=== PATIENT | female | born 1990 | race Caucasian/White ===

== ENCOUNTER 2017-07-04 19:18 | Emergency (ER) | payer OTHER ==
[2017-07-04 19:52] VITALS: BP 121/67; PULSE 77; TEMP 99.3; BMI 31.9
--- NOTE | 2017-07-04 19:52 | PDOC ---
Rapid Medical Evaluation Time Seen by Provider: 07/04/17 19:41 Medical Evaluation: Allergies Allergy/AdvReac Type Severity Reaction Status Date / Time No Known Allergies Allergy Verified 04/30/15 10:12 07/04/17 19:49 Pt with c/o: rectal bleeding after defecation yesterday with wiping, feels hemorrhoid, hx of same, no meds taken, no bleeding now, no abd pain, slight rectal pain Pt on brief exam: vss Pt ordered for: none Pt to proceed to the ED Discharge Disposition - Diagnosis Bleeding hemorrhoid - Referrals - Patient Instructions - Post Discharge Activity
--- NOTE | 2017-07-04 20:52 | PDOC ---
History of Present Illness - General Chief Complaint: Rectal Bleed Stated Complaint: RECTAL BLEEDING Time Seen by Provider: 07/04/17 19:41 History Source: Patient Exam Limitations: No Limitations - History of Present Illness Initial Comments: 07/04/17 20:53 19-year-old female without significant past medical history presents to the emergency department with bright red blood noted on toilet paper after wiping last night. Patient states she has had hemorrhoids in the past and feels similar. Patient states she has not taken of water and has to strain to move her bowels. Patient is not had any episodes of blood in her stool and has not moved her bowels since the episode of bright red blood last evening. Past History - Past Medical History Allergies/Adverse Reactions: Allergies Allergy/AdvReac Type Severity Reaction Status Date / Time No Known Allergies Allergy Verified 07/04/17 19:50 Home Medications: Ambulatory Orders NK [No Known Home Medication] 07/04/17 - Immunization History Immunization Up to Date: No - Suicide/Smoking/Psychosocial Hx Smoking Status: No Smoking History: Never smoked Have you smoked in the past 12 months: No Number of Cigarettes Smoked Daily: 0 Hx Alcohol Use: No Drug/Substance Use Hx: No Substance Use Type: None Review of Systems - Review of Systems Able to Perform ROS?: Yes Is the patient limited Danish proficient: No Constitutional: No: Symptoms Reported HEENTM: No: Symptoms Reported Respiratory: No: Symptoms reported Cardiac (ROS): No: Symptoms Reported ABD/GI: Yes: See HPI : No: Symptoms Reported Musculoskeletal: No: Symptoms Reported Integumentary: No: Symptoms Reported Neurological: No: Symptoms reported Endocrine: No: Symptoms Reported Hematologic/Lymphatic: No: Symptoms Reported *Physical Exam - Vital Signs Last Vital Signs Temp Pulse Resp BP Pulse Ox 99.3 F 77 16 121/67 99 07/04/17 19:50 07/04/17 19:50 07/04/17 19:50 07/04/17 19:50 07/04/17 19:50 - Physical Exam General Appearance: Yes: Appropriately Dressed. No: Apparent Distress HEENT: positive: TALA, Normal ENT Inspection Neck: positive: Trachea midline, Supple Respiratory/Chest: positive: Lungs Clear, Normal Breath Sounds. negative: Respiratory Distress, Accessory Muscle Use Cardiovascular: positive: Regular Rhythm, Regular Rate Gastrointestinal/Abdominal: positive: Normal Bowel Sounds, Soft. negative: Tender Rectal Exam: positive: hemorrhoids (external nonthrombosed, nonbleeding) Musculoskeletal: positive: Normal Inspection. negative: CVA Tenderness Extremity: positive: Normal Capillary Refill, Normal Inspection, Normal Range of Motion Integumentary: positive: Normal Color, Dry, Warm Neurologic: positive: Fully Oriented, Alert, Normal Response Medical Decision Making - Medical Decision Making 07/04/17 20:51 A/P: 19-year-old female doesn't of the past medical history presents emergency Department with perirectal pain and bright red blood noted on toilet paper after wiping last night. Rectal exam reveals external hemorrhoid that is nonthrombosed and currently not bleeding. Discharge *DC/Admit/Observation/Transfer Diagnosis at time of Disposition: External hemorrhoid - Discharge Dispostion Disposition: HOME Condition at time of disposition: Stable Admit: No - Referrals - Patient Instructions Printed Discharge Instructions: DI for Hemorrhoids Additional Instructions: Apply Preparation H to affected area. Follow manufacturers instructions for appropriate dosing. Use Tucks witch toy pads to help relieve pain or experiencing on the rectum. Follow manufacturers instructions for appropriate dosage. Drink plenty of water. Return to emergency department for worsening bleeding, dizziness, lightheadedness, chest pain, shortness of breath or any other concerns. Take a very much for choosing us to provide your emergent healthcare needs. - Post Discharge Activity
== END 2017-07-04 20:57 | disposition home or self-care (01) ==
LOC: JERFT 19:18
DX: K64.4 Residual hemorrhoidal skin tags (principal)
CPT/HCPCS: 99281-25

== ENCOUNTER 2018-04-30 08:57 | Emergency (ER) | payer OTHER ==
[2018-04-30 09:08] VITALS: BP 122/74; PULSE 61; TEMP 98.2; BMI 29.6
--- NOTE | 2018-04-30 10:11 | PDOC ---
History of Present Illness - General Chief Complaint: Ear Problem Stated Complaint: Ear Problem Time Seen by Provider: 04/30/18 09:21 Past History - Past Medical History Allergies/Adverse Reactions: Allergies Allergy/AdvReac Type Severity Reaction Status Date / Time No Known Allergies Allergy Verified 07/04/17 19:50 Home Medications: Ambulatory Orders Cephalexin Monohydrate [Keflex -] 500 mg PO BID #14 capsule 04/30/18 Ofloxacin Otic [Floxin Otic -] 10 drop OT BID #100 drops 04/30/18 Sulfamethoxazole/Trimethoprim [Bactrim Ds -] 1 tab PO BID #14 tablet 04/30/18 COPD: No - Immunization History Immunization Up to Date: No - Suicide/Smoking/Psychosocial Hx Smoking Status: No Smoking History: Never smoked Have you smoked in the past 12 months: No Number of Cigarettes Smoked Daily: 0 Information on smoking cessation initiated: No Hx Alcohol Use: No Drug/Substance Use Hx: No Substance Use Type: None *Physical Exam - Vital Signs Last Vital Signs Temp Pulse Resp BP Pulse Ox 98.2 F 61 16 122/74 99 04/30/18 09:05 04/30/18 09:05 04/30/18 09:05 04/30/18 09:05 04/30/18 09:05 *DC/Admit/Observation/Transfer Diagnosis at time of Disposition: Ear ache Cellulitis Qualifiers: Site of cellulitis: trunk Site of cellulitis of trunk: groin Qualified Code(s) : L03.314 - Cellulitis of groin - Discharge Dispostion Disposition: HOME Condition at time of disposition: Stable Decision to Admit order: No - Referrals Referrals: Bubba Brower MD [Staff Physician] - - Patient Instructions Printed Discharge Instructions: DI for Ear Pain-Adult Additional Instructions: You have cellulitis. This is a skin infection. Please take the Bactrim and Keflex twice a day for one week. Please take all the antibiotics even if you feel better. You may use warm water soaks to the area. Please do this approximately 4-5 times a day. Please avoid shaving the skin around the area of redness. You may take Tylenol or Motrin as needed for pain. Please follow up with your primary care doctor in 1 week. Return to the emergency department if you have worsening redness, fevers, increasing pain, or have any changes in your symptoms. You were also evaluated for your ear ache Your head CT was normal today You most likely have an ear infection Please use the ear drops as directed Follow up with ENT. A referral for Dr. Brower has been provided Tienes celulitis Esta es kristy infeccin de la piel. Por favor, tome Bactrim y Keflex dos veces al da yahir kristy semana. Por favor , tome todos los antibiticos incluso si se siente mejor. Puede usar agua tibia en remojo a la artur. Por favor, haz esto aproximadamente 4 -5 veces al da. Evite rasurar la piel alrededor del vinnie de enrojecimiento. Puede june Tylenol o Motrin segn sea necesario para el dolor. Por favor yves un seguimiento con thomason mdico de atencin primaria en 1 semana. Regrese al departamento de emergencias si tiene empeoramiento de enrojecimiento , fiebre, aumento del dolor o si tiene algn cambio en lucille sntomas. Usted tambin fue evaluado por thomason dolor de odo Tu shelbi CT fue normal hoy Es muy probable que tenga kristy infeccin de odo. Por favor, use las gotas para los odos rakan se indica Seguimiento con ENT. Se larry proporcionado kristy referencia para el Dr. Brower - Post Discharge Activity Forms/Work/School Notes: Back to Work
[2018-04-30] MEDS ORDERED: IBUPROFEN 600 MG TABLET (FP) PO ONE ×2 (10:12→10:19)
== END 2018-04-30 14:31 | disposition home or self-care (01) ==
LOC: JERFT 08:57
DX: H92.01 Otalgia, right ear (principal); L03.314 Cellulitis of groin
CPT/HCPCS: 70480-TC; 84703; 99281-25

== ENCOUNTER 2019-02-12 00:56 | Emergency (ER) | payer OTHER | END 2019-02-12 02:34 | disposition home or self-care (01) | LOC: JER 00:56 | DX: O99.89 Other specified diseases and conditions complicating pregnancy, childbirth and the puerperium (principal); T63.441A Toxic effect of venom of bees, accidental (unintentional), initial encounter; L29.8 Other pruritus; Y92.89 Other specified places as the place of occurrence of the external cause; Z3A.16 16 weeks gestation of pregnancy ==

== ENCOUNTER 2019-07-12 14:20 | Inpatient (IN) | payer OTHER ==
[2019-07-12] MEDS ORDERED: AMPICILLIN SODIUM 2 GM VIAL ONE (14:49)
[2019-07-12] MEDS ORDERED: OXYTOCIN 20 UNITS in 0.9% NS 20 UNIT/1,000 ML INFUS.BAG IV ONE ×2 (14:50→17:20)
[2019-07-12] MEDS ORDERED: BENZOCAINE 20% 57 GM BOTTLE TP PRN (15:30)
[2019-07-12] MEDS ORDERED: BISACODYL 10 MG SUPP.RECT RC PRN (15:30)
[2019-07-12] MEDS ORDERED: D5W-LR W/ 20 UNITS OXYTOCIN 20 UNIT/1,000 ML INFUS.BAG IV SCH (15:30)
[2019-07-12] MEDS ORDERED: oxyCODONE HCL 5 MG TABLET PO PRN (15:30)
[2019-07-12] MEDS ORDERED: BENZOCAINE 28 GM HEMORRHOIDAL OINTMENT TP PRN (15:30)
[2019-07-12] MEDS ORDERED: WITCH HAZEL 50% (TUCKS) 40 PAD/JAR PAD TP PRN (15:30)
[2019-07-12] MEDS ORDERED: METHYLERGONOVINE MALEATE 0.2 MG/1 ML AMP IM PRN (15:30)
--- NOTE | 2019-07-12 15:35 | PN ---
Delivery - Delivery Vaginal Delivery: Spontaneous Type of Anesthesia: None (cx full , head delivered , nasopharynx suctioned , ant and post. shoulder with no difficulty . live baby girl , 9/9 , no laceration, no complication, eba 300 cc) Episiotomy/Laceration: None
--- NOTE | 2019-07-12 15:41 | HP ---
Past Medical History - Primary Care Physician PCP:: Ludwig Bishop - Admission Chief Complaint: 39 weeks, labor History of Present Illness: 29 y0 f 39 weeks,in labor, cx 9 cm 80 vx 0 mi, fhr cat i, regular contraction, GBS negative History Source: Patient Limitations to Obtaining History: Language Barrier - Past Medical History ...: 2 ...Para: 1 ...Term: 1 ... Weeks Gestation by Dates: 39 - Past Surgical History Hx Myomectomy: No Hx Transabdominal Cerclage: No - Smoking History Smoking history: Never smoked Have you smoked in the past 12 months: No Aproximately how many cigarettes per day: 0 - Alcohol/Substance Use Hx Alcohol Use: No - Social History Usual Living Arrangement: Yes: With Spouse History of Recent Travel: No Home Medications - Allergies Allergies/Adverse Reactions: Allergies Allergy/AdvReac Type Severity Reaction Status Date / Time No Known Allergies Allergy Verified 07/12/19 14:53 - Home Medications Home Medications: Ambulatory Orders Pnv No.95/Ferrous Fum/Folic AC [ Formula] 1 each PO DAILY 07/12/19 Review of Systems - Review of Systems Constitutional: reports: No Symptoms HENT: reports: No Symptoms Neck: reports: No Symptoms Cardiovascular: reports: No Symptoms Respiratory: reports: No Symptoms Gastrointestinal: reports: No Symptoms Genitourinary: reports: No Symptoms Breasts: reports: No Symptoms Reported Musculoskeletal: reports: No Symptoms Integumentary: reports: No Symptoms Neurological: reports: No Symptoms Endocrine: reports: No Symptoms Hematology/Lymphatic: reports: No Symptoms Psychiatric: reports: No Symptoms Physical Exam - Maternity Constitutional: Yes: Well Nourished, No Distress, Calm Eyes: Yes: WNL, Conjunctiva Clear, EOM Intact HENT: Yes: WNL, Atraumatic, Normocephalic Neck: Yes: WNL, Supple, Trachea Midline Cardiovascular: Yes: WNL, Regular Rate and Rhythm Breast(s): Yes: WNL - Abdominal Exam/OB Fundal Height: 38 Number of Fetuses: Single Presentation: Vertex Contractions: Yes Regularity: Regular Intensity: Mod/Strong Monitor Mode: External Heart Rate Location: [facility] Category: I Accelerations: Non-Uniform Decelerations: None - Vaginal Exam/OB Vaginal Bleediing: No Speculum Exam: No Dilatation (cm): 9 cm Effacement (%): 100 Amniotic Membrane Status: Bulging Presentation: Vertex/Position Station: 0 - Physical Exam Musculoskeletal: Yes: WNL Extremities: Yes: WNL Edema: LLE: Trace, RLE: Trace Deep Tendon Reflex Grade: Normal +2 ...Motor Strength: WNL Psychiatric: Yes: WNL Hemorrhage Risk Assessment - Risk Factors Medium Risk Factors: Yes: None High Risk Factors: Yes: None Risk Score: 1 Risk Level: Medium Risk Problem List - Problems (1) with 39 completed weeks gestation Code(s): Z3A.39 - 39 WEEKS GESTATION OF (2) Labor established Code(s): [id number] - Assessment/Plan admit fhm vaginal delivery soon
[2019-07-12 16:12] VITALS: BMI 32.6
[2019-07-12] MEDS ORDERED: ACETAMINOPHEN 325 MG TABLET (FP) ONE (16:13)
[2019-07-12] MEDS ORDERED: IBUPROFEN 600 MG TABLET (FP) PO ONE (16:13)
[2019-07-12] MEDS: ACETAMINOPHEN 325 MG TABLET (FP) PO PRN (16:20)
[2019-07-12] MEDS: IBUPROFEN 600 MG TABLET (FP) PO PRN (16:20)
[2019-07-12 16:47] LABS: BASO % 0.2 % (0-2.0); EOS % 0.3 % (0-4.5); HEMATOCRIT 31.7 % (32.4-45.2); HEMOGLOBIN 10.4 GM/dL (10.7-15.3); LYMPH % 20.7 % (8-40); MCHC 32.7 g/dl (32.0-36.0); MEAN CELL VOLUME 85.5 fl (80-96); MEAN PLT VOLUME 10.4 fl (7.5-11.1); MONO % 4.3 % (3.8-10.2); NEUT % 74.5 % (42.8-82.8); PLATELET COUNT 221 K/MM3 (134-434); RDW 14.3 % (11.6-15.6); WHITE BLOOD COUNT 7.8 K/mm3 (4.0-10.0)
[2019-07-12 17:04] LABS: INR 0.98 (0.83-1.09); PROTHROMBIN TIME (PATIENT) 11.6 SEC (9.7-13.0)
[2019-07-12 17:07] LABS: ACTIVATED PTT 27.1 SECONDS (25.2-36.5)
[2019-07-12 17:08] LABS: BLOOD UREA NITROGEN 10.9 mg/dL (7-18); CALCIUM 8.3 mg/dL (8.5-10.1); CREATININE 0.6 mg/dL (0.55-1.3); POTASSIUM 3.7 mmol/L (3.5-5.1)
[2019-07-12] MEDS ORDERED: METHYLERGONOVINE MALEATE 0.2 MG/1 ML AMP IM ONE (17:51)
[2019-07-12] MEDS ORDERED: AMPICILLIN - 2 GM in SODIUM CHLORIDE 100 ML IVPB ONE (17:51)
[2019-07-12] MEDS ORDERED: OXYTOCIN 20 UNITS in 0.9% NS 20 UNIT/1,000 ML INFUS.BAG IV SCH (18:00)
[2019-07-12] MEDS: FERROUS SO4 325 MG TABLET (FP) PO SCH (18:18)
[2019-07-13] MEDS: FERROUS SO4 325 MG TABLET (FP) PO SCH ×2 (08:53→16:58)
[2019-07-13 09:35] LABS: BASO % 0.2 % (0-2.0); EOS % 0.2 % (0-4.5); HEMATOCRIT 29.2 % (32.4-45.2); HEMOGLOBIN 9.6 GM/dL (10.7-15.3); LYMPH % 26.7 % (8-40); MCH 28.3 pg (25.7-33.7); MEAN CELL VOLUME 85.6 fl (80-96); MEAN PLT VOLUME 10.4 fl (7.5-11.1); MONO % 5.3 % (3.8-10.2); NEUT % 67.6 % (42.8-82.8); PLATELET COUNT 214 K/MM3 (134-434); RBC 3.41 M/mm3 (3.60-5.2); RDW 14.4 % (11.6-15.6)
[2019-07-13] MEDS: PRENATAL VITAMINS W/ FOLIC ACID TABLET (FP) PO SCH (10:58)
--- NOTE | 2019-07-13 18:49 | PN ---
Progress Note (short form) - Note Progress Note: ppd s/p , NO C/O , VOIDS OK CBC, BMP 07/13/19 08:19 07/12/19 15:50 Last Vital Signs Temp Pulse Resp BP Pulse Ox 98.0 F 72 18 126/68 100 07/13/19 18:00 07/13/19 18:00 07/13/19 18:00 07/13/19 18:00 07/12/19 17:35 abdomen soft, no cva, uterus firm , non tender lochia mild no calf tenderness plan ambulate , for d/c home in am Problem List - Problems (1) with 39 completed weeks gestation Code(s): Z3A.39 - 39 WEEKS GESTATION OF (2) Labor established Code(s): BVX6723 -
[2019-07-13] MEDS ORDERED: SENNOSIDES/DOCUSATE COMBO (SENNA PLUS) TABLET (UD) PO PRN (22:00)
[2019-07-14] MEDS: FERROUS SO4 325 MG TABLET (FP) PO SCH (08:55)
--- NOTE | 2019-07-14 09:07 | DS ---
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: Vital Signs Temperature 97.5 F L 07/13/19 20:35 Pulse Rate 95 H 07/13/19 20:35 Respiratory Rate 20 07/13/19 20:35 Blood Pressure 109/58 L 07/13/19 20:35 O2 Sat by Pulse Oximetry (%) 100 07/12/19 17:35 Constitutional: Yes: Well Nourished, No Distress, Calm Eyes: Yes: WNL, Conjunctiva Clear, EOM Intact HENT: Yes: WNL, Atraumatic, Normocephalic Neck: Yes: WNL, Supple, Trachea Midline Cardiovascular: Yes: WNL, Regular Rate and Rhythm Respiratory: Yes: WNL Gastrointestinal: Yes: WNL ...Rectal Exam: Yes: WNL Renal/: Yes: WNL External Genitalia: Yes: Normal ....Post : Yes: Uterus firm, Uterus non-tender, Slight lochia rubra Breast(s): Yes: WNL Musculoskeletal: Yes: WNL Extremities: Yes: WNL Edema: No Integumentary: Yes: WNL Neurological: Yes: WNL, Alert, Oriented ...Motor Strength: WNL Psychiatric: Yes: WNL, Alert, Oriented Labs: CBC, BMP 07/13/19 08:19 07/12/19 15:50 Delivery - Delivery Vaginal Delivery: Spontaneous Type of Anesthesia: None Episiotomy/Laceration: None EBL (cc): 300 Delivery, Single - Stages of Labor Date 1st Stage Initiatied: 07/11/19 Time 1st Stage Initiated: 23:00 Date 2nd Stage Initiated: 07/12/19 Time 2nd Stage Initiated: 15:00 Date of Delivery: 07/12/19 Time of Delivery: 15:10 Time Placenta Delivered: 15:12 Placenta: Yes: Spontaneous - Condition of Infant Patient Care Provider/Office Workforce Planner Present: No Gender: Female Weight: 7 lb 13 oz Position: Left, OA Total Hours ROM (Hrs/Mins): 5mins - 1 Minute Total Score: 9 5 Minutes Total Score: 9 - [place] Feeding Plan Initial Plan: Exclusive throughout hospitalization Discharge Summary Problems reviewed: Yes Reason For Visit: ADMISSION OF LABOR Current Active Problems Labor established (Acute) with 39 completed weeks gestation (Acute) Procedures: Principal: Other Procedures: none Hospital Course: no complication Plan of Treatment: iron, vit Condition: Good - Instructions Diet, Activity, Other Instructions: regular diet, if pain, heavy vaginal bleeding, fever call MD Referrals: Ludwig Bishop MD [Staff Physician] - Disposition: HOME - Home Medications Comprehensive Discharge Medication List: Ambulatory Orders Pnv No.95/Ferrous Fum/Folic AC [ Formula] 1 each PO DAILY 07/12/19 Ibuprofen [Motrin -] 600 mg PO TID #21 tablet 07/13/19
[2019-07-14] MEDS: PRENATAL VITAMINS W/ FOLIC ACID TABLET (FP) PO SCH (09:40)
[2019-07-14] MEDS: ACETAMINOPHEN 325 MG TABLET (FP) PO PRN (10:13)
[2019-07-14] MEDS: IBUPROFEN 600 MG TABLET (FP) PO PRN (10:14)
[2019-07-14 10:29] VITALS: BP 120/65; PULSE 74; TEMP 97.7
== END 2019-07-14 13:50 | disposition home or self-care (01) | DRG 560 ==
LOC: JLDR 14:20 → J3W 17:30
PROVIDERS: ADMIT Obstetrics & Gynecology; ATTEND Obstetrics & Gynecology
PROC: 10E0XZZ Delivery of Products of Conception, External Approach (ICD-10-PCS; principal; 2019-07-12)
DX: O80 Encounter for full-term uncomplicated delivery (principal); Z3A.39 39 weeks gestation of pregnancy; Z37.0 Single live birth
CPT/HCPCS: 36415; 59409; 80048; 85025; 85610; 85730; 86593; 86850; 86900; 86901